=== PATIENT | female | born 1970 | race Caucasian/White ===

== ENCOUNTER 2017-05-11 07:39 | Day surgery (SDC) | payer OTHER ==
[2017-05-10 09:39] VITALS: BMI 31.9
[2017-05-11] MEDS ORDERED: SCOPOLAMINE HYDROBROMIDE 1 PATCH PATCH.TD72 ONE (10:01)
[2017-05-11] MEDS ORDERED: methylPREDNISolone ACET (DEPO) 40 MG/1 ML VIAL ONE ×2 (10:23→10:40)
[2017-05-11] MEDS ORDERED: LIDOCAINE HCL 1%, 10 MG/ML (20ML VIAL) ONE (10:23)
[2017-05-11] MEDS ORDERED: PROPOFOL 20 ML ONE (10:26)
[2017-05-11] MEDS ORDERED: MIDAZOLAM HCL 2 MG/2 ML SINGLE DOSE VIAL ONE (10:26)
[2017-05-11] MEDS ORDERED: BUPIVACAINE HCL/PF 2.5 MG/ML - 30 ML VIAL IJ ONE (10:34)
[2017-05-11] MEDS ORDERED: ceFAZolin SODIUM 1 GM VIAL ONE (10:44)
[2017-05-11] MEDS ORDERED: ONDANSETRON 4 MG/2 ML VIAL ONE (10:51)
[2017-05-11] MEDS ORDERED: DEXAMETHASONE SOD PHOSPHATE 4 MG/1 ML VIAL ONE (10:51)
[2017-05-11] MEDS ORDERED: KETOROLAC TROMETHAMINE 30 MG/1 ML VIAL ONE (10:55)
[2017-05-11] MEDS ORDERED: BUPIVACAINE HCL/PF 0.25% (2.5MG/ML) 10 ML VIAL IJ ONE (11:16)
[2017-05-11] MEDS ORDERED: oxyCODONE HCL 5 MG TABLET PO PRN (11:17)
[2017-05-11] MEDS ORDERED: LACTATED RINGERS SOLUTION 1,000 ML IV SCH (11:30)
[2017-05-11] MEDS: ONDANSETRON 4 MG/2 ML VIAL IVPUSH PRN ×2 (11:40→14:15)
[2017-05-11 12:10] VITALS: TEMP 97.8
[2017-05-11] MEDS ORDERED: ACETAMINOPHEN INJECTION 100 ML IVPB ONE (12:14)
[2017-05-11] MEDS ORDERED: ACETAMINOPHEN 1000 MG/100 ML VIAL (NON FORMULARY) IVPB ONE (12:15)
[2017-05-11] MEDS ORDERED: HYDROmorphone HCL CARPU-JECT 1 MG/1 ML DISP.SYRIN ONE (12:40)
[2017-05-11 15:16] VITALS: BP 142/72; PULSE 60
--- NOTE | 2017-05-13 22:58 | OP ---
DATE OF OPERATION: 05/11/2017 SURGEON: Ulisses May MD UPHOLSTERY AUTO TRIMMER: KEYONA Escamilla PREOPERATIVE DIAGNOSIS: 1. Left knee mediolateral meniscal tear. 2. Left knee cartilage injury and left knee synovitis. POSTOPERATIVE DIAGNOSIS: 1. Left knee mediolateral meniscal tear. 2. Left knee cartilage injury and left knee synovitis. PROCEDURE: 1. Left knee arthroscopy with partial meniscectomy of the mediolateral meniscus, CPT code 97191. 2. Left knee arthroscopy with chondroplasty and abrasioplasty, CPT code 62551. 3. Left knee arthroscopy with synovectomy and removal of medial plica, CPT code 82671. FINDINGS: 1. Medial meniscus posterior horn tear, minor. 2. Lateral meniscus posterior horn tear, minor. 3. Synovitis of the patellofemoral and mediolateral notch area. 4. Diffuse grade 1-2 cartilage injury of the medial joint. 5. ACL and PCL intact. 6. Antegrade 2-3 cartilage injury of lateral femoral condyle and tibial plateau. 7. Central grade 2-4 cartilage injury of patellofemoral trochlea and patellofemoral joint with thickened anterior scar tissue adhesion to anterior femoral trochlea. PROCEDURE: Informed consent was obtained. The patient came to the operating room, where the lower extremity was prepped and draped in a sterile fashion. A tourniquet was placed on the upper thigh, but not inflated. Using standard arthroscopic technique, a lateral incision and portal was made to allow for introduction of the camera into the suprapatellar bursa. This was then taken to the medial joint line, where under direct visualization, a medial incision and portal was made. Excessive synovium noted in the medial, lateral and patellofemoral and notch area was removed by an up-biter, shaver and Bovie cautery. This was found to bring in inflammatory tissue into the joint surface, a source of pain and dysfunction. Probing of the medial and lateral meniscus found tears, as described in the findings. These were removed with the up-biter and shaver and taken back to a stable rim. Grade 2 to 3 degenerative changes were treated with a chondroplasty, removing all flaking surfaces with low-setting Bovie along the periphery to prevent further flaking. Grade 4 changes, as noted, were treated with an abrasioplasty, creating a bleeding surface at the bone/cartilage interface. Aggressive debridement with shaver/chau created bleeding surface. Microfracture also done when indicated in findings All areas of the knee were once again reexamined. The knee was then drained and a single suture was placed in all portals. A sterile dressing was placed and the patient was transferred to the recovery room without complication. ULISSES MAY M.D. [id number]
--- NOTE | 2017-05-16 15:38 | PATH ---
Surgical Pathology Report Patient Name: ROSI RYAN [facility]. Rec. #: [id number] /Age/Gender: 1970 (Age: 46) / F Account: [id number] Location: [facility] Taken: 05/11/2017 Received: 05/11/2017 Reported: 05/16/2017 Physicians: Ulisses Barrios M.D. Specimen(s) Received LEFT KNEE SHAVINGS Clinical History Left knee internal derangement Final Diagnosis KNEE, LEFT, ARTHROSCOPIC SHAVINGS: FIBROSYNOVIAL AND FIBROCOLLAGENOUS TISSUE. Electronically Signed Sabrina Sinclair M.D. Gross Description Received in formalin, labeled "left knee shavings," is a 4.5 x 3.4 x 0.3 cm. aggregate of godwin-yellow soft tissue fragments. A in store marketing representative portion is submitted in one cassette. /05/14/2017 saudi05/14/2017
== END 2017-05-11 15:15 | disposition home or self-care (01) ==
LOC: FASU 07:39
PROVIDERS: ATTEND Orthopaedic Surgery
PROC: 0SBD4ZZ Excision of Left Knee Joint, Percutaneous Endoscopic Approach (ICD-10-PCS; 2017-05-11)
PROC: 0SBD4ZZ Excision of Left Knee Joint, Percutaneous Endoscopic Approach (ICD-10-PCS; 2017-05-11)
PROC: 0SBD4ZZ Excision of Left Knee Joint, Percutaneous Endoscopic Approach (ICD-10-PCS; principal; 2017-05-11 10:36)
DX: S83.242A Other tear of medial meniscus, current injury, left knee, initial encounter (principal); S83.282A Other tear of lateral meniscus, current injury, left knee, initial encounter; S83.8X2A Sprain of other specified parts of left knee, initial encounter; M65.862 Other synovitis and tenosynovitis, left lower leg; X58.XXXA Exposure to other specified factors, initial encounter; Y93.9 Activity, unspecified; Y92.9 Unspecified place or not applicable
CPT/HCPCS: 84703; 88304-TC; 94760; J0131